=== PATIENT | male | born 1955 | race Caucasian/White ===

== ENCOUNTER 2019-08-02 17:14 | Inpatient (IN) ==
[2019-08-02] MEDS ORDERED: RAPID SEQUENCE INDUCTION BAG ONE ×2 (17:20→17:39)
[2019-08-02] MEDS ORDERED: PROPOFOL IV EMULSION 10 MG/ML 100 ML VIAL IV ONE (17:40)
[2019-08-02] MEDS ORDERED: AMIODARONE 150MG / 100ML D5W IV ONE (17:44)
[2019-08-02] MEDS ORDERED: SODIUM CHLORIDE 0.9% 1000ML 1,000 ML IV SCH (18:00)
[2019-08-02] MEDS ORDERED: NiCARDipine HCL INJ 2.5 MG/ML 10 ML AMP ONE (18:09)
[2019-08-02] MEDS ORDERED: fentaNYL citrate 100 MCG/2 ML VIAL ONE (18:09)
[2019-08-02] MEDS ORDERED: HEPARIN (PORCINE) 1000 UNIT/ML 10 ML (CATH LAB USE ONLY) ONE (18:09)
[2019-08-02] MEDS ORDERED: MIDAZOLAM HCL 1 MG/ML 2ML VIAL ONE (18:10)
[2019-08-02] MEDS ORDERED: AMIODARONE / D5W 360 MG/200 ML BAG IV SCH ×2 (18:15)
[2019-08-02 18:18] LABS: Basophils # (auto) 0.04 K/uL (0-0.2); Basophils % (auto) 0.3 %; Eosinophils # (auto) 0.04 K/uL (0-0.5); Eosinophils % (auto) 0.3 %; Hemoglobin 16.3 g/dL (14.0-18.0); Immature Granulocytes # (auto) 0.05 K/uL (0.00-0.02); Immature Granulocytes % (auto) 0.3 %; Lymphocytes # (auto) 2.45 K/uL (1.2-3.4); Lymphocytes % (auto) 15.6 %; Mean Corpuscular Hemoglobin 29.9 pg (25-34); Mean Corpuscular Hgb Conc 32.6 g/dL (32-36); Mean Corpuscular Volume 91.6 fL (80-100); Monocytes # (auto) 1.54 K/uL (0.11-0.59); Monocytes % (auto) 9.8 %; Neutrophils # (auto) 11.55 K/uL (1.4-6.5); Neutrophils % (auto) 73.7 %; Platelet Count 211 K/uL (130-400); RDW Coefficient of Variation 15.2 % (11.5-14.5); RDW Standard Deviation 50.6 fL (36.4-46.3); Red Blood Count 5.46 M/uL (4.7-6.1); White Blood Count 15.67 K/uL (4.8-10.8)
[2019-08-02 18:23] LABS: iSTAT Creatinine 1.2 mg/dl (0.6-1.3); iSTAT Ionized Calcium 1.02 mmol/l (1.12-1.32); iSTAT Potassium 5.1 mmol/L (3.3-5.0)
--- NOTE | 2019-08-02 18:24 | XRay Report ---
XR chest 1V portable CLINICAL HISTORY: Chest pain COMPARISON STUDY: No previous studies for comparison. FINDINGS: The tip of the endotracheal tube is 5.3 cm above the noemi. A left subclavian biventricula r pacer is in place. Moderate to marked enlargement of the cardiac silhouette is noted. There is no p neumothorax. There are suspected trace bilateral pleural effusions. Interstitial thickening favors pu lmonary edema. IMPRESSION: 1. Satisfactory positioning of the endotracheal tube. 2. No pneumothorax. Suspected trace bilateral pleural effusions. 3. Moderate to marked enlargement of the cardiac silhouette. 4. Interstitial thickening which favors pulmonary edema. An infectious process could appear similar a lthough is considered less likely. ACT 112: Negative or not required by law. Electronically signed by: Michael Nye M.D. 08/02/2019 6:22 PM
[2019-08-02 18:33] LABS: INR 1.3 (0.9-1.1); Partial Thromboplastin Ratio 1.1; Partial Thromboplastin Time 29.9 Seconds (21.0-31.0); Prothrombin Time 13.4 Seconds (9.0-12.0)
--- NOTE | 2019-08-02 18:56 | CT Scan Report ---
CT OF THE HEAD WITHOUT CONTRAST CLINICAL HISTORY: found down COMPARISON STUDY: No previous studies for comparison. TECHNIQUE: Helical axial images of the head were obtained without IV contrast. Automated exposure con trol was utilized for the study. A dose lowering technique was utilized adhering to the principles o f ALARA. FINDINGS: No acute intracranial hemorrhage, midline shift or mass effect is present. Ventricular syst em is normal. Basilar cisterns are patent. There are no extra axial collections. There is an old infa rct within the anterior medial left frontal lobe. Hypodensity within the left occipital lobe is noted . This favors a subacute to chronic infarct. There is loss of gonzalez-white differentiation within the r ight insular cortex. There is hypodensity within a significant portion of the right MCA distribution. This favors an acute infarct. There is no mass effect. No calvarial fracture is present. Air-fluid l evel with secretions within the left maxillary sinus is noted. Secretions within nasopharynx are like ly related to intubation. IMPRESSION: 1. No acute intracranial hemorrhage or mass effect. 2. Probable acute right MCA distribution infarct, at least moderate in size. Findings discussed with Dr. Carranza at time of dictation. 3. Old left frontal lobe infarct. Hypodensity within the left occipital lobe which favors a subacute to chronic infarct. ACT 112: Negative or not required by law. Electronically signed by: Michael Nye M.D. 08/02/2019 6:55 PM
--- NOTE | 2019-08-02 18:59 | CT Scan Report ---
CT OF THE CERVICAL SPINE WITHOUT CONTRAST CLINICAL HISTORY: found down COMPARISON STUDY: No previous studies for comparison. TECHNIQUE: Helical axial images of the cervical spine were obtained without IV contrast. Sagittal a nd coronal reconstructions were viewed. Automated exposure control was utilized for the study. A do se lowering technique was utilized adhering to the principles of ALARA. FINDINGS: Alignment of the cervical spine is anatomic. Vertebral body heights are maintained. No acut e cervical spine fracture or subluxation is present. There is no prevertebral edema. Facet joints are intact. Endotracheal tube is partially imaged. Moderate multilevel degenerative disc disease and fa cet arthrosis is noted. Please note that the chest will be reported separately. IMPRESSION: No acute cervical spine fracture or subluxation. ACT 112: Negative or not required by law. Electronically signed by: Michael Nye M.D. 08/02/2019 6:57 PM
[2019-08-02] MEDS ORDERED: EPINEPHrine INJ 1 MG/ML AMP ONE (19:00)
--- NOTE | 2019-08-02 19:04 | Emergency Department Note ---
History of Present Illness General Chief complaint: Fall Stated complaint: FALL, CONFUSION Time Seen by Provider: 08/02/19 17:15 History of Present Illness Provider complaint: Found down Onset (ago): unknown 64-year-old male presents emergency department via EMS. Per EMS, the patient was found down in his mobile trailer home. They state they approximate that he was down for approximately 6 hours. EMS reports that the patient is being extremely combative, hypoxic at 87% on room air, they have been unable to secure an IV line or get accurate blood pressure readings. EMS reports that the patient has been in a wide-complex tachycardia in route also. Patient was recently at [facility] and has discharge paperwork with him regarding diabetes. Allergies Allergy/AdvReac Type Severity Reaction Status Date / Time No Known Allergies Allergy Unverified 08/02/19 19:33 Past Med/Surg History Medical History (Updated 08/03/19 @ 01:16 by Cristóbal Carranza) Acute DVT (deep venous thrombosis) Acute hypoxemic respiratory failure (Acute) Acute kidney injury Cerebral infarction involving middle cerebral artery (Acute) Diabetes Hyperglycemia due to type 2 diabetes mellitus Multifocal pneumonia S/P admission to ICU (intensive care unit) Splenic infarct Ventricular tachycardia (Acute) Social History Current Living Situation: Family Smoking Status: Unknown if ever smoked Review of Systems Unobtainable due to cognitive status Physical Exam Vital Signs Vital Signs - 24 hr 08/02/19 17:05 08/02/19 17:40 08/02/19 17:45 Temperature Temperature Source Pulse Rate 150 H 125 H Pulse Rate [Right Finger] 150 H Respiratory Rate 20 16 Respiratory Effort / Characteristics Blood Pressure [Left Arm] 80/40 L Blood Pressure Mean [Left Arm] 53 Blood Pressure Position [Left Arm] Lying Pulse Oximetry 92 88 L 98 Oxygen Delivery Method Mechanical Vent Mechanical Vent Mechanical Vent Oxygen Flow Rate 15 Fraction of Inspired Oxygen 100 SaO2/FiO2 Ratio Sepsis New/Unexplained Change in Mental Status Yes Sepsis Action Taken by Nursing No Action Required End-Tidal CO2 33 Pulse Oximetry Post Tiitration 98 08/02/19 17:50 08/02/19 18:39 08/02/19 19:50 Temperature 37.5 C Temperature Source Rectal Pulse Rate Pulse Rate [Right Finger] 121 H 114 H Respiratory Rate 18 22 Respiratory Effort / Characteristics Mechanically Ventilated Mechanically Ventilated Blood Pressure [Left Arm] 80/60 L 145/111 H Blood Pressure Mean [Left Arm] 66 122 Blood Pressure Position [Left Arm] Lying Pulse Oximetry 98 100 Oxygen Delivery Method Mechanical Vent Mechanical Vent Mechanical Vent Oxygen Flow Rate Fraction of Inspired Oxygen 100 SaO2/FiO2 Ratio 100 Sepsis New/Unexplained Change in Mental Status Sepsis Action Taken by Nursing End-Tidal CO2 Pulse Oximetry Post Tiitration Physical Exam GENERAL: Patient appears severely distressed. Agonal breathing tachypneic. Appears mildly mildly cyanotic. Patient appears dirty. EYES:Pupils are equal, round, and reactive to light. CV: Tachycardic rate, irregular rhythm, normal heart sounds and intact distal pulses. PULM/CHEST: Rhonchi bilaterally. Respiratory distress. Tachypneic. Agonal breathing. - Chest Wall: Patient appears to have a suspected defibrillator or pacemaker in his left upper chest. ABD: The abdomen is soft. Obese. There is diffuse ecchymosis of the anterior abdominal wall which looks like it could have been due to Lovenox shots. NEURO: GCS eye subscore is 1. GCS verbal subscore is 2. GCS motor subscore is 4. Procedures FAST Exam FAST Exam 1: Fluid in Morison's pouch: No Fluid in Splenorenal Junction: No Fluid around bladder, Transverse view: No Fluid around bladder, Sagittal view: No Fluid in Pericardial Sac: No Study normal for this patient: Yes Additional Comments: Zaman exam performed. No AAA. Good lung sliding bilaterally, no pneumothorax bilaterally. Intubation Time out performed: Yes sedative: Etomidate paralytic: Rocuronium Mg Given: 100 Laryngoscope: other (Dover scope) ET Tube Size: 7.5 ET Tube Uncuffed: Yes Tube Secured Location: lips Tube Placement Confirmation: visualized tube passing through cords, equal breath sounds bilaterally, no breath sounds over epigastrium and confirmation by capnometry Patient Tolerated Procedure: well Intubation Complications: none IO Right Tibia: IO Instrument Used to Penetrate the Cortex: battery powered IO drill Patient Tolerated Procedure: well Complications: none (Good marrow and blood return. Line was able to be easily flushed.) Left Tibia: IO Instrument Used to Penetrate the Cortex: battery powered IO drill Patient Tolerated Procedure: well Complications: none (Good marrow and blood return. Line was able to be easily flushed.) Course Course 1700: The patient was evaluated in room C10. A complete history and physical exam was performed. Patient was immediately moved to the resuscitation bay Administered Medications Discontinued Medications Amiodarone HCl/Dextrose (Nexterone / D5w) Confirm Administered Dose 150 mg IV .STK-MED ONE Stop: 08/02/19 17:45 Last Admin: 08/02/19 19:09 Dose: 150 mg Documented by: [id number] Cosigned by: [id number] Epinephrine HCl (Epinephrine) Confirm Administered Dose 4 mg .ROUTE .STK-MED ONE Stop: 08/02/19 19:01 Last Admin: 08/02/19 21:33 Dose: Not Given Documented by: [id number] Fentanyl Citrate (Fentanyl Citrate) Confirm Administered Dose 100 mcg .ROUTE .STK-MED ONE Stop: 08/02/19 18:10 Last Admin: 08/02/19 21:33 Dose: Not Given Documented by: [id number] Furosemide (Lasix) Confirm Administered Dose 40 mg IV .STK-MED ONE Stop: 08/02/19 19:15 Last Admin: 08/02/19 21:33 Dose: Not Given Documented by: [id number] Heparin Sodium (Porcine) (Heparin Iv Bolus (Feeder Associate Use Only)) Confirm Administered Dose 10,000 units .ROUTE .STK-MED ONE Stop: 08/02/19 18:10 Last Admin: 08/02/19 21:34 Dose: Not Given Documented by: [id number] Heparin Sodium/Sodium Chloride (Heparin/Nss 1000 Unit/500ml Flush Bag) Confirm Administered Dose 3,000 units IV .STK-MED ONE Stop: 08/02/19 18:11 Last Admin: 08/02/19 21:34 Dose: Not Given Documented by: [id number] Sodium Chloride (Nss 1000ml) 1,000 mls @ 999 mls/hr IV .Q1H1M JUAN ALBERTO Stop: 08/02/19 19:00 Last Infusion: 08/02/19 19:01 Dose: 999 mls/hr Documented by: [id number] Admin: 08/02/19 18:00 Dose: 999 mls/hr Documented by: [id number] Amiodarone HCl/Dextrose (Nexterone / D5w) 360 mg in 200 mls @ 33.3 mls/hr IV .Q6H1M JUAN ALBERTO Stop: 08/03/19 00:15 Last Admin: 08/02/19 21:33 Dose: Not Given Documented by: [id number] Levetiracetam 1,000 mg/ Sodium (Chloride) 110 mls @ 440 mls/hr IV NOW STA Stop: 08/02/19 20:50 Last Infusion: 08/02/19 21:57 Dose: 0 mls/hr Documented by: [id number] Admin: 08/02/19 21:32 Dose: 440 mls/hr Documented by: [id number] Vancomycin HCl 2,250 mg/ (Sodium Chloride) 545 mls @ 200 mls/hr IV NOW ONE Stop: 08/02/19 23:22 Last Admin: 08/02/19 21:32 Dose: 200 mls/hr Documented by: [id number] Cefepime HCl 2,000 mg/ Syringe 20 mls @ 5.5 mls/min IV NOW STA; Protocol Stop: 08/02/19 20:42 Last Admin: 08/02/19 21:32 Dose: 5.5 mls/min Documented by: [id number] Insulin Human Regular 250 (units/ Sodium Chloride) 250 mls @ 4.1 mls/hr IV .Q24H JUAN ALBERTO; Protocol Stop: 09/01/19 20:44 Last Admin: 08/02/19 21:46 Dose: 4.1 units/hr, 4.1 mls/hr Documented by: [id number] Cosigned by: [id number] Insulin Aspart (Novolog Flexpen) 0 units SC ACHS JUAN ALBERTO Stop: 09/01/19 20:59 Last Admin: 08/02/19 21:48 Dose: Not Given Documented by: [id number] Cosigned by: [id number] Insulin Human Regular (Novolin R Bolus From Bag) 4 units IV ONE ONE Stop: 08/02/19 21:16 Last Admin: 08/02/19 21:47 Dose: 4 units Documented by: [id number] Cosigned by: [id number] Midazolam HCl (Versed) Confirm Administered Dose 2 mg .ROUTE .STK-MED ONE Stop: 08/02/19 18:11 Last Admin: 08/02/19 21:34 Dose: Not Given Documented by: [id number] Miscellaneous () Confirm Administered Dose 1 ea .ROUTE .STK-MED ONE Stop: 08/02/19 17:21 Last Admin: 08/02/19 18:29 Dose: Not Given Documented by: [id number] Miscellaneous () Confirm Administered Dose 1 ea .ROUTE .STK-MED ONE Stop: 08/02/19 17:40 Last Admin: 08/02/19 18:29 Dose: 1 ea Documented by: [id number] Miscellaneous (Insulin Protocol Goal Range) 1 ea N/A ONE ONE Stop: 08/02/19 20:45 Last Admin: 08/02/19 21:47 Dose: 1 ea Documented by: [id number] Nicardipine HCl (Cardene) Confirm Administered Dose 25 mg .ROUTE .STK-MED ONE Stop: 08/02/19 18:10 Last Admin: 08/02/19 21:33 Dose: Not Given Documented by: [id number] Propofol (Diprivan) Confirm Administered Dose 1,000 mg IV .STK-MED ONE Stop: 08/02/19 17:41 Last Admin: 08/02/19 19:08 Dose: 1,000 mg Documented by: [id number] Cosigned by: [id number] Critical Care Time Critical Care Time: Yes Total Critical Care Time: 105 105 Medical Decision Making Laboratory Data Result diagrams: 08/02/19 18:09 08/02/19 18:09 Lab Results 08/02/19 08/02/19 08/02/19 Range/Units 17:22 18:09 18:09 WBC 15.67 H (4.8-10.8) K/uL RBC 5.46 (4.7-6.1) M/uL Hgb 16.3 (14.0-18.0) g/dL POC Hgb (14.0-18.0) g/dl Hct 50.0 (42-52) % POC Hct (42-52) % MCV 91.6 (80-100) fL MCH 29.9 (25-34) pg MCHC 32.6 (32-36) g/dL RDW Std Deviation 50.6 H (36.4-46.3) fL RDW Coeff of Penny 15.2 H (11.5-14.5) % Plt Count 211 (130-400) K/uL MPV 13.0 H (7.4-10.4) fL Immature Gran % (Auto) 0.3 % Neut % (Auto) 73.7 % Lymph % (Auto) 15.6 % [place] % (Auto) 9.8 % Eos % (Auto) 0.3 % Baso % (Auto) 0.3 % Immature Gran # (Auto) 0.05 H (0.00-0.02) K/uL Neut # (Auto) 11.55 H (1.4-6.5) K/uL Lymph # (Auto) 2.45 (1.2-3.4) K/uL [place] # (Auto) 1.54 H (0.11-0.59) K/uL Eos # (Auto) 0.04 (0-0.5) K/uL Baso # (Auto) 0.04 (0-0.2) K/uL PT 13.4 H (9.0-12.0) Seconds INR 1.3 H (0.9-1.1) APTT 29.9 (21.0-31.0) Seconds PTT Ratio 1.1 POC pH (7.35-7.45) POC pCO2 (35-46) mmHg POC pO2 (80-95) mmHg POC HCO3 (19-24) james/L POC Base Excess (-9-1.8) james/L POC ABG O2 Sat (90-95) % POC Sodium (135-144) mmol/L Sodium (136-145) mmol/L POC Potassium (3.3-5.0) mmol/L Potassium (3.5-5.1) mmol/L POC Chloride (101-112) mmol/L Chloride (98-107) mmol/L Carbon Dioxide (21-32) mmol/L POC Total CO2 (24-31) mmol/L Anion Gap (3-11) POC Anion Gap (16-25) mmol/L POC BUN (7-18) mg/dl BUN (7-18) mg/dl Creatinine (0.6-1.4) mg/dl POC Creatinine (0.6-1.3) mg/dl Est Cr Clr Drug Dosing ml/min Est GFR ( Amer) Est GFR (Non-Af Amer) BUN/Creatinine Ratio (10-20) Glucose (70-99) mg/dl POC Glucose 275 H (70-99) mg/dl POC Glucose (other) (70-99) mg/dl Calcium (8.5-10.1) mg/dl POC Ioniz Calcium Katie (1.12-1.32) mmol/l Magnesium (1.8-2.4) mg/dl Total Bilirubin (0.2-1) mg/dl AST (15-37) U/L ALT (12-78) U/L Alkaline Phosphatase (45-117) U/L Total Creatine Kinase (39-308) U/L CK-MB (CK-2) (0.5-3.6) ng/ml CK/CKMB % Calc (0-3.0) Troponin I (0-0.045) ng/ml NT-Pro-B Natriuret Pep (0-900) pg/ml Total Protein (6.4-8.2) gm/dl Albumin (3.4-5.0) gm/dl Globulin (2.5-4.0) gm/dl Albumin/Globulin Ratio (0.9-2) Lipase (73-393) U/L Beta-Hydroxybutyric Acd (0.2-2.81) mg/dl TSH (0.300-4.500) uIu/ml Specimen Hemolysis 08/02/19 08/02/19 08/02/19 Range/Units 18:09 18:11 19:10 WBC (4.8-10.8) K/uL RBC (4.7-6.1) M/uL Hgb (14.0-18.0) g/dL POC Hgb 18.0 18.0 (14.0-18.0) g/dl Hct (42-52) % POC Hct 53 H 53 H (42-52) % MCV (80-100) fL MCH (25-34) pg MCHC (32-36) g/dL RDW Std Deviation (36.4-46.3) fL RDW Coeff of Penny (11.5-14.5) % Plt Count (130-400) K/uL MPV (7.4-10.4) fL Immature Gran % (Auto) % Neut % (Auto) % Lymph % (Auto) % [place] % (Auto) % Eos % (Auto) % Baso % (Auto) % Immature Gran # (Auto) (0.00-0.02) K/uL Neut # (Auto) (1.4-6.5) K/uL Lymph # (Auto) (1.2-3.4) K/uL Nome # (Auto) (0.11-0.59) K/uL Eos # (Auto) (0-0.5) K/uL Baso # (Auto) (0-0.2) K/uL PT (9.0-12.0) Seconds INR (0.9-1.1) APTT (21.0-31.0) Seconds PTT Ratio POC pH 7.12 L* (7.35-7.45) POC pCO2 70 H (35-46) mmHg POC pO2 52 L (80-95) mmHg POC HCO3 23 (19-24) james/L POC Base Excess -7.0 (-9-1.8) james/L POC ABG O2 Sat 72.0 L (90-95) % POC Sodium 131 L 135 (135-144) mmol/L Sodium 132 L (136-145) mmol/L POC Potassium 5.1 H 4.6 (3.3-5.0) mmol/L Potassium 5.2 H (3.5-5.1) mmol/L POC Chloride 102 (101-112) mmol/L Chloride 103 (98-107) mmol/L Carbon Dioxide 17 L (21-32) mmol/L POC Total CO2 20 L 25 (24-31) mmol/L Anion Gap 13.0 H (3-11) POC Anion Gap 16.0 (16-25) mmol/L POC BUN 30 H (7-18) mg/dl BUN 28 H (7-18) mg/dl Creatinine 1.42 H (0.6-1.4) mg/dl POC Creatinine 1.2 (0.6-1.3) mg/dl Est Cr Clr Drug Dosing 65.1 ml/min Est GFR ( Amer) 59.6 Est GFR (Non-Af Amer) 51.5 BUN/Creatinine Ratio 20.0 (10-20) Glucose 325 H* (70-99) mg/dl POC Glucose (70-99) mg/dl POC Glucose (other) 334 H (70-99) mg/dl Calcium 8.2 L (8.5-10.1) mg/dl POC Ioniz Calcium Katie 1.02 L (1.12-1.32) mmol/l Magnesium 1.7 L (1.8-2.4) mg/dl Total Bilirubin 0.8 (0.2-1) mg/dl AST 31 (15-37) U/L ALT 51 (12-78) U/L Alkaline Phosphatase 95 (45-117) U/L Total Creatine Kinase 199 (39-308) U/L CK-MB (CK-2) 2.8 (0.5-3.6) ng/ml CK/CKMB % Calc 1.4 (0-3.0) Troponin I 0.074 H* (0-0.045) ng/ml NT-Pro-B Natriuret Pep 8124 H (0-900) pg/ml Total Protein 6.7 (6.4-8.2) gm/dl Albumin 2.9 L (3.4-5.0) gm/dl Globulin 3.8 (2.5-4.0) gm/dl Albumin/Globulin Ratio 0.8 L (0.9-2) Lipase 127 (73-393) U/L Beta-Hydroxybutyric Acd (0.2-2.81) mg/dl TSH 4.220 (0.300-4.500) uIu/ml Specimen Hemolysis 08/02/19 Range/Units 19:29 WBC (4.8-10.8) K/uL RBC (4.7-6.1) M/uL Hgb (14.0-18.0) g/dL POC Hgb 17.0 (14.0-18.0) g/dl Hct (42-52) % POC Hct 50 (42-52) % MCV (80-100) fL MCH (25-34) pg MCHC (32-36) g/dL RDW Std Deviation (36.4-46.3) fL RDW Coeff of Penny (11.5-14.5) % Plt Count (130-400) K/uL MPV (7.4-10.4) fL Immature Gran % (Auto) % Neut % (Auto) % Lymph % (Auto) % [place] % (Auto) % Eos % (Auto) % Baso % (Auto) % Immature Gran # (Auto) (0.00-0.02) K/uL Neut # (Auto) (1.4-6.5) K/uL Lymph # (Auto) (1.2-3.4) K/uL [place] # (Auto) (0.11-0.59) K/uL Eos # (Auto) (0-0.5) K/uL Baso # (Auto) (0-0.2) K/uL PT (9.0-12.0) Seconds INR (0.9-1.1) APTT (21.0-31.0) Seconds PTT Ratio POC pH 7.14 L* (7.35-7.45) POC pCO2 65 H (35-46) mmHg POC pO2 57 L (80-95) mmHg POC HCO3 22 (19-24) james/L POC Base Excess -7.0 (-9-1.8) james/L POC ABG O2 Sat 78.0 L (90-95) % POC Sodium 134 L (135-144) mmol/L Sodium (136-145) mmol/L POC Potassium 4.5 (3.3-5.0) mmol/L Potassium (3.5-5.1) mmol/L POC Chloride (101-112) mmol/L Chloride (98-107) mmol/L Carbon Dioxide (21-32) mmol/L POC Total CO2 24 (24-31) mmol/L Anion Gap (3-11) POC Anion Gap (16-25) mmol/L POC BUN (7-18) mg/dl BUN (7-18) mg/dl Creatinine (0.6-1.4) mg/dl POC Creatinine (0.6-1.3) mg/dl Est Cr Clr Drug Dosing ml/min Est GFR ( Amer) Est GFR (Non-Af Amer) BUN/Creatinine Ratio (10-20) Glucose (70-99) mg/dl POC Glucose (70-99) mg/dl POC Glucose (other) (70-99) mg/dl Calcium (8.5-10.1) mg/dl POC Ioniz Calcium Katie (1.12-1.32) mmol/l Magnesium (1.8-2.4) mg/dl Total Bilirubin (0.2-1) mg/dl AST (15-37) U/L ALT (12-78) U/L Alkaline Phosphatase (45-117) U/L Total Creatine Kinase (39-308) U/L CK-MB (CK-2) (0.5-3.6) ng/ml CK/CKMB % Calc (0-3.0) Troponin I (0-0.045) ng/ml NT-Pro-B Natriuret Pep (0-900) pg/ml Total Protein (6.4-8.2) gm/dl Albumin (3.4-5.0) gm/dl Globulin (2.5-4.0) gm/dl Albumin/Globulin Ratio (0.9-2) Lipase (73-393) U/L Beta-Hydroxybutyric Acd (0.2-2.81) mg/dl TSH (0.300-4.500) uIu/ml Specimen Hemolysis Imaging Data My Impression: Chest x-ray shows ET tube in good position. Cardiomegaly. Bilateral patchy infiltrates with cephalization. ECG Data Additional Comments: EKG at 1743: Wide-complex tachycardia insistent with the appearance of ventricular tachycardia. EKG at 1749: Paced rhythm with rate of 120. QRS 134. QTc 520. ST elevation in leads V1, V2, V4, V5 V6. EKG at 1757. Paced rhythm with rate of 131. QRS 162. QTc 475. ST elevation in leads V1, V2, V3, V4 V5 V6. MDM Narrative Patient was immediately seen in room C10. Patient appeared to be in acute distress was immediately moved to resuscitation bay. In the resuscitation bay the patient was found to be tachycardic. IO was placed by me in the left lower extremity. The patient had a low GCS and was minimally responsive to noxious stimuli. Decision was made to intubate the patient. Patient was intubated via glide scope, see procedure note. Status post intubation the patient was difficult to bag. The tube was confirmed to be in the right place with glide scope. After this the patient developed a wide-complex tachycardia and was f ound to be hypotensive, he did have a pulse. Patient then was subsequently cardioverted at 100 J. Repeat EKG showed a possible ST elevation in leads V1 and V2. Heart alert was called. ICU attending was paged. Amiodarone bolus and drip were ordered for the patient. Patient became hypotensive again while the amiodarone was running and it was difficult to find a pulse on the patient. Bedside ultrasound performed by me did show that the patient had cardiac motion. A epinephrine drip was created by placing 1 mg of epinephrine from the code cart into 1 L normal saline bag and then was ran wide open on the patient. A second IO line was placed by me in the right lower extremity. Calcium chloride 1 g was given for possible hyperkalemia through this line. Bedside ZAMAN exam was negative. No free fluid in the abdomen. No AAA. No pneumothorax. Blood pressure began stabilizing on the epinephrine drip. Dr. Knox interventional cardiology and Dr. White ICU came to the bedside. The decision was made to take the patient a CAT scan as patient was found down and was thought the patient could have is possible brain bleed. The plan was that if the patient need to be transferred for an acute bleed or any acute injury, the patient would be transferred and if not the patient be taken to the cardiac [facility]. I went with the patient to the CT scanner. CT of the head viewed by me showed no large intracranial hemorrhage or no cervical spine fracture. Therefore the patient was taken from the CAT scan to the cardiac [facility]. After the patient went to the cardiac [facility], I received a call from radiology which stated the patient could have a acute MCA ischemic stroke. Patient is not a candidate for TPA it is unclear when the patient fell or when his symptoms began as he was found on the floor. Dr. Knox in the [facility] team were made aware of this as well as the admitting team [facility] doctor Velarde. [employer] Dr. Nj was also made aware of these findings. It was not thought that the patient was stable for transfer given his hypotension, wide- complex tachycardia, and need to be on epinephrine drip. Therefore no consultation with a tertiary care stroke center was done emergency department at this time as it was thought that would be best to stabilize the patient hemodynamically in the ICU before transfer. Impression & Plan Acute hypoxemic respiratory failure, Ventricular tachycardia, Cerebral infarction involving middle cerebral artery Discharge Plan Visit Data *Final* Discharge Date/Time: 08/02/19 18:39 Chief Complaint: Fall Stated Complaint: FALL, CONFUSION ED Provider: Cristóbal Carranza Discharge Problem: Acute hypoxemic respiratory failure, Ventricular tachycardia, Cerebral infarction involving middle cerebral artery Patient Disposition: Admitted As Inpatient Discharge Instructions Interventions: ED Discharge Assessment Last Done: 08/02/19 18:39
--- NOTE | 2019-08-02 19:07 | CT Scan Report ---
CT OF THE CHEST WITHOUT IV CONTRAST CLINICAL HISTORY: found down COMPARISON STUDY: Chest radiograph performed earlier today. TECHNIQUE: Axial images of the chest were obtained without IV contrast. Images were reviewed in the axial, sagittal, and coronal planes. IV contrast was not administered for this examination. Automat ed exposure control was utilized for the study. A dose lowering technique was utilized adhering to t he principles of ALARA. FINDINGS: A left subclavian biventricular pacer is in place. Moderate cardiomegaly is noted. There i s no pericardial effusion. There are multiple enlarged mediastinal lymph nodes. Index right paratrach eal lymph node on image 101 of 281 measures 1.7 cm in short axis diameter. There is no pneumothorax. There are small bilateral pleural effusions. Severe upper lobe predominant emphysema is noted. The kj ngs are suboptimally assessed given respiratory motion. There is interlobular septal thickening withi n the lungs. In addition, extensive bilateral airspace opacities are noted, greater within the left l mone. There is no cavitation. No acute rib or thoracic spine fracture is noted. Old right-sided rib fr actures present. Endotracheal tube is appropriately positioned. CT of the abdomen and pelvis will be reported separately. A suspected large splenic infarct is noted. IMPRESSION: 1. Moderate cardiomegaly with interstitial pulmonary edema. Small bilateral pleural effusions. 2. Extensive bilateral airspace opacities which could reflect pneumonia, sequela of aspiration or pul monary alveolar edema. 3. Enlarged mediastinal lymph nodes which are indeterminate. A follow-up chest CT in 3 months could b e obtained. 4. Suspected large splenic infarct better depicted on the CT of the abdomen and pelvis. Please see th at report for further description. 5. Severe emphysema. ACT 112: Negative or not required by law. Electronically signed by: Michael Nye M.D. 08/02/2019 7:05 PM
[2019-08-02] MEDS ORDERED: FUROSEMIDE 40 MG/4 ML VIAL IV ONE (19:14)
--- NOTE | 2019-08-02 19:17 | CT Scan Report ---
CT OF THE ABDOMEN AND PELVIS WITHOUT CONTRAST CLINICAL HISTORY: found down COMPARISON STUDY: No previous studies for comparison. TECHNIQUE: Axial images of the abdomen and pelvis were obtained without IV contrast. Images were revi ewed in the axial, sagittal, and coronal planes. Automated exposure control was utilized for the dy. A dose lowering technique was utilized adhering to the principles of ALARA. FINDINGS: Please note that the chest CT will be reported separately. Small bilateral pleural effusion s with associated airspace opacities are better depicted on that exam. Although suboptimally assessed on this unenhanced exam, a 8.9 x 5.9 cm well-demarcated hypodensity within the mid to upper aspect o f the spleen favors an infarct. There is adjacent infiltration. Water attenuation lesions within the bilateral kidneys are suboptimally assessed on this unenhanced exam but favor cysts. No pneumatosis, free air or portal venous gas is present. Unenhanced images of the liver, adrenal glands and pancreas are normal. There is no biliary or pancreatic ductal dilatation. There is trace pericholecystic flui d. The gallbladder is not distended. Trace fluid within the pelvis is noted. There is no evidence for a bowel obstruction. The appendix is normal. No lymphadenopathy is present. A James balloon is prese nt within the bladder. No acute lumbar spine or pelvic fracture is identified. IMPRESSION: 1. 8.9 x 5.9 cm well demarcated hypodensity within the superior aspect of the spleen which favors an infarct. 2. No bowel obstruction. 3. Mild pericholecystic infiltration/fluid. No gallbladder distention. No convincing evidence for acu te cholecystitis. ACT 112: Negative or not required by law. Electronically signed by: Michael Nye M.D. 08/02/2019 7:16 PM
[2019-08-02 19:23] LABS: iSTAT Arterial Blood Gas HCO3 23 meg/L (19-24); iSTAT Arterial Blood Gas pCO2 70 mmHg (35-46); iSTAT Arterial Blood Gas pH 7.12 (7.35-7.45); iSTAT Arterial Blood Gas pO2 52 mmHg (80-95); iSTAT Carbon Dioxide 25 mmol/L (24-31); iSTAT Hematocrit 53 % (42-52); iSTAT Potassium 4.6 mmol/L (3.3-5.0); iSTAT Sodium 135 mmol/L (135-144)
[2019-08-02 19:42] LABS: iSTAT Arterial Blood Gas HCO3 22 meg/L (19-24); iSTAT Arterial Blood Gas pCO2 65 mmHg (35-46); iSTAT Arterial Blood Gas pH 7.14 (7.35-7.45); iSTAT Arterial Blood Gas pO2 57 mmHg (80-95); iSTAT Carbon Dioxide 24 mmol/L (24-31); iSTAT Hematocrit 50 % (42-52); iSTAT Potassium 4.5 mmol/L (3.3-5.0); iSTAT Sodium 134 mmol/L (135-144)
[2019-08-02] MEDS ORDERED: ICU PROTOCOL FOR HYPERGLYCEMIA PRN (19:55)
--- NOTE | 2019-08-02 19:55 | Cardiac Catheterization ---
[facility] Data: [place] Cardiac Status Clinical evaluation leading to the procedure CAD Presenation: Unstable angina (Suspected ACS) Heart Failure: NYHA Class: CCS IV Cardiogenic Shock within 24 Hours: No Cardiac Arrest within 24 Hours: Yes Imaging Studies Past 6 Months: No Stress Studies Past 6 Months: No Diagnostic Physicians Name: Brandyn Knox MD Closure Device Recommendations: Medical Therapy and/or Counseling Intraprocedure Events Significant Disection: No Perforation: No Cardiac Cath Procedure Full Procedure Date August 02, 2019 Pre-Procedure Diagnosis Pre-Procedure Diagnosis: Acute Coronary Syndrome (Possible ACS) and Cardiothoracic Symptom (Ventricular tachycardia) AUC Score AUC Score: 7 Post-Procedure Diagnosis Post-Procedure Diagnosis: Moderate CAD and Elevated Intracardiac Pressures Procedure(s) Performed Procedure(s) Performed: Coronary Angiography, Left Heart Cath, Ultrasound Guided Vascular Access and Procedure (LT CVC placement) Ciso Brandyn Knox MD Calibrator Barometers(s) Alpesh Estimated Blood Loss Estimated Blood Loss: 10 Medication(s) Medication(s): Epinephrine and Lidocaine 1% Medication(s): Lasix x1 Summary of Findings Indication: Patient found down, unresponsive. Presenting rhythm in emergency department ventricular tachycardia. ECG post cardioversion without dynamic ST changes. Access: 6 Fr slender right radial artery Catheters: [place], JL4 Findings: LM -medium caliber vessel, luminal irregularities LAD -medium caliber vessel, 40% ostial stenosis, patent proximal LAD stent with minimal in-stent restenosis distal vessel extends around apex with CHACORTA III flow. Bifurcating first diagonal with 50% ostial stenosis. Circumflex -medium caliber codominant vessel, proximal/mid segment luminal irregularities RCA -medium caliber vessel, codominant, 50% mid segment stenosis, CHACORTA-3 flow in PDA LVEDP -29 -Difficulty oxygenating patient during procedure given IV Lasix 40 mg x 1 Maintained on epinephrine 0.1 Triple-lumen CVC placed to left CFV under ultrasound guidance. Ultrasound of right common femoral vein notable for acute appearing mobile thrombus. Arterial Closure: TR band Summary: 1. Moderate nonobstructive coronary artery disease -Patent proximal LAD stent with mild in-stent restenosis. 40 to 50% ostial stenosis of bifurcating first diagonal 50% mid RCA stenosis 2. Elevated intracardiac filling pressure Recommendations: No evidence of obstructive coronary disease to explain initial presentation and ventricular tachycardia. Continued hemodynamic support, amiodarone, diuresis in ICU per critical care Hemodynamics Rest Ao:: 158/82/102 Final Ao: 139/86/140 LV: 137/29 Recommendations Recommendations: Medical Therapy and/or Counseling Specimens Specimens: None Radiation Exposure (mGy) 1150 Contrast (mls) 60 Fluids (cc crystalloids) Fluids (cc crystalloids): 400 Drains Drains: None Anesthesia Moderate Procedural Complication(s) None I attest to the content of the Intraoperative Record and any orders documented therein. Any exceptions are noted below. [facility] Procedure Codes Cardiac Catheterization Procedure 1: Cardiovascular Cath Procedures: 12493 Coronaries and LHC (+/-LV) Therapeutic Services & Ancillary Proc Procedure 1: Cardiovascular Tx and Anc Procedures: 95452 Insertion Central Venous Catheter Procedure 2: Cardiovascular Tx and Anc Procedures: 77418 Ultrasonic Guidance Vascular Access PG Care Time/CCT Total # of Minutes Spent Total Time Spent with Patient: Total time spent is greater than 50% in coordination of care (as documented) at patient's floor/unit and/or counseling patient:
[2019-08-02 20:25] LABS: Albumin Globulin Ratio 0.8 (0.9-2); Albumin Level 2.9 gm/dl (3.4-5.0); Bilirubin,Total 0.8 mg/dl (0.2-1); Calcium 8.2 mg/dl (8.5-10.1); Creatine Kinase MB 2.8 ng/ml (0.5-3.6); Creatinine Clr Calc Pharmacy 65.1 ml/min; Est GFR (African American) 59.6; Est GFR (Non-African American) 51.5; Globulin 3.8 gm/dl (2.5-4.0); Magnesium 1.7 mg/dl (1.8-2.4); Potassium 5.2 mmol/L (3.5-5.1); Thyroid Stimulating Hormone 4.22 uIu/ml (0.300-4.500); Total Protein 6.7 gm/dl (6.4-8.2); Troponin I 0.074 ng/ml (0-0.045)
[2019-08-02] MEDS ORDERED: levETIRAcetam 1,000 MG in 0.9 % SODIUM CHLORIDE 100 ML IV STA (20:36)
[2019-08-02] MEDS ORDERED: CEFEPIME 2,000 MG in SYRINGE 7.5 ML IV STA (20:39)
[2019-08-02] MEDS ORDERED: VANCOMYCIN HCL 2,250 MG in SODIUM CHLORIDE 0.9% 500 ML IV ONE (20:39)
[2019-08-02] MEDS ORDERED: VANCOMYCIN CONSULT ACTIVE PRN (20:39)
[2019-08-02] MEDS ORDERED: INSULIN PROTOCOL GOAL RANGE ONE (20:44)
[2019-08-02] MEDS ORDERED: INSULIN REGULAR 250 UNITS in SODIUM CHLORIDE 0.9% 247.5 ML IV SCH (20:45)
[2019-08-02] MEDS ORDERED: GLUCOSE 40% GEL 15 GM TUBE PO PRN (21:00)
[2019-08-02] MEDS ORDERED: DEXTROSE 50% 50 ML SYRINGE IV PRN (21:00)
[2019-08-02] MEDS ORDERED: INSULIN ASPART 100 UNITS/ML 3 ML PEN SC SCH (21:00)
[2019-08-02] MEDS ORDERED: GLUCAGON FOR INJ 1 MG VIAL IM PRN (21:00)
[2019-08-02] MEDS ORDERED: CARBOHYDRATES FOR HYPOGLYCEMIA PO PRN (21:00)
[2019-08-02] MEDS ORDERED: GLUCOSE 10 TABS/TUBE PO PRN (21:00)
--- NOTE | 2019-08-02 21:07 | Critical Care Consultation ---
Date of Consultation August 02, 2019 Assessment & Plan (1) S/P admission to ICU (intensive care unit): 64-year-old male with past medical history of coronary artery disease, diabetes mellitus type 2 [place] and was found to have an acute right MCA infarct, splenic infarct, diffuse coronary artery disease, ventricular tachycardia, multifocal pneumonia and acute hypoxemic respiratory failure requiring mechanical ventilation Neurologic: Analgesics and sedation: Avoid sedation. PRN fentanyl if needed. He does have evidence of an acute stroke. Will obtain a CTA of his head and neck. Will contact [facility] for possible mechanical thrombectomy given findings of the noncontrast CT head. Elevate the head of the bed above 30 degrees. Pain controlled to avoid increased intracranial pressure. Allow for permissive hypertension. We will only treat hypertension if systolic blood pressure greater than 220 or diastolic blood pressure greater than 120. He is at risk for right middle cerebral artery malignant syndrome. I have loaded him with Keppra 1000 mg. Consult neurology. Delirium precautions Pulmonary: Patient is currently intubated requiring high amounts of PEEP and FiO2. We are treating multifocal pneumonia. Evaluating for COVID-19. Obtain sputum culture. We will continue lung protective ventilation strategy. Patient has respiratory acidosis. We will increase his respiratory rate to 25. Decrease tidal volumes of 450 to allow for lung protective ventilation strategy. Head of the bed elevated to 30 degrees if intubated Cardiovascular: Permissive hypertension as above for the first 24 to 48 hours.. Intervene if systolic blood pressure greater than 220 or diastolic blood pressure greater than 120. Gastrointestinal: N.p.o. for now. Stress ulcer prophylaxis: Protonix. Renal: Possible MIGUEL. We will continue to follow urine output. UA pending. Infectious disease: Urinalysis, blood cultures, sputum cultures, procalcitonin and lactate pending. MRSA screen pending as well. We will empirically start vancomycin and cefepime. Over 19 pending. Hematologic: No significant coagulopathy. Platelets normal. He does have evidence of a clot in his right femoral vein per cardiology. He also has splenic infarcts. He may be hypercoagulable. Hypercoagulable work-up will be deferred once he is out of an acute phase of illness. We will check a fibrinogen level. Endocrine: Patient very hyperglycemic. We will start him on insulin drip. Check TSH. F/E/N: Hold IV fluids for now. Hold nutrition. Lines and tubes: Left femoral vein catheter in place. Left radial art line in place. Peripheral IV is being attempted. He has [address] in both shins. VTE prophylaxis: We will hold for now given the right MCA infarct. CODE STATUS: Full code. Family at bedside: None available at bedside. Disposition: Remain in the ICU for now. Will contact [facility] for possible transfer to neuro ICU. Discussed with patient's bedside RN, respiratory therapist, conditioning coach, ER physician and hospitalist. I have personally spent 62 minutes of critical care time in the direct management of this patient. This is a life/limb threatening event. This includes time spent evaluating patient, direct bedside care, chart review, placing orders, interpretation of diagnostic studies, discussion with consultants, patient, and family members, as well as other required patient management activ ities. This time is exclusive of all separately billable procedures, and teaching time and separate from and in addition to any other critical care service time. Thank you for allowing us to participate in the care of this patient. (2) Cerebral infarction involving middle cerebral artery: (3) Ventricular tachycardia: (4) Acute hypoxemic respiratory failure: (5) Multifocal pneumonia: (6) Hyperglycemia due to type 2 diabetes mellitus: (7) Acute kidney injury: (8) Acute DVT (deep venous thrombosis): (9) Splenic infarct: History of Present Illness Reason for Consultation: Shock and acute stroke Requesting Physician: Emergency department physician Attending Physician: Hospitalist History of Present Illness History unobtainable from the patient as he is intubated and encephalopathic. I was able to obtain some history from the ER physician and bedside nurses. This is a 64-year-old male with an unknown past medical history who was found down in his mobile [place] home. He was found down since perhaps 9 or 10 AM. EMS reported that he was very combative and hypoxic to 87% on room air. They were unable to secure any lines for IV medications. He was apparently recently at [facility] and we are awaiting the paperwork regarding that discharge. He did undergo 2 shocks in the emergency department for ventricular tachycardia. I was present in the emergency department with Dr. Brandyn Knox who agreed to take the patient for heart cath evaluation. Prior to that the patient underwent a CT of his head, chest, abdomen, pelvis. CT C-spine was also obtained. No acute cervical spine fracture noted. An 8.9 x 5.9 well-demarcated hypodensity within the superior aspect of the spleen favoring an infarct was seen. CT chest demonstrated moderate cardiomegaly with interstitial pulmonary edema and small bilateral effusions. Extensive bilateral airspace opacities were also seen likely sequelae of aspiration or pulmonary edema. Severe emphysema seen as well. CT head indicated probable acute right MCA distribution infarct at least moderate in size. Old left frontal infarct was also seen. ABG demonstrated severe acidosis with a pH of 7.14/65/57. Cardiac cath demonstrated moderate nonobstructive coronary artery disease. Patent proximal LAD stent with mild in-stent restenosis. Elevated intracardiac filling pressures. LVEDP was 29 mmHg. A triple-lumen central venous line was placed in the femoral vein on the left. Ultrasound of the right femoral vein noted possible acute appearing mobile thrombus. Allergies Allergy/AdvReac Type Severity Reaction Status Date / Time No Known Allergies Allergy Unverified 08/02/19 19:33 Patient History Medical History Diabetes Social History Current Living Situation: Family Smoking Status: Unknown if ever smoked Review of Systems Review of Systems: Unobtainable due to cognitive status and Unobtainable due to endotracheal tube Physical Exam Constitutional: Patient is currently intubated and sedated. He appears mildly tachypneic. He is moving his right extremity at times and shaking. Eyes: Pupils are pinpoint but reactive to light. ENMT: external ear and nose normal, oropharynx normal Neck: normal visual inspection Respiratory: Bilateral rhonchi and crackles noted. Cardiovascular: RRR, no murmur, no edema Gastrointestinal (Abdomen): normal bowel sounds, soft, nontender, no hepatosplenomegaly Musculoskeletal: no cyanosis or clubbing, extremities motor strength 5/5 Skin: Numerous wounds and scratch chavez on his abdomen. Neurologic: He appears to spontaneously move his right upper extremity and right leg. His left upper extremity and left leg are flaccid. Psychiatric: Unable to assess given the patient's underlying medical condition. Genitourinary: James catheter in place Results & Data Results & Data ([facility]) Vital Signs (Past 12 Hours) Vital Signs Pulse Pulse Resp BP Pulse Ox 08/02/19 17:50 121 H 18 80/60 L 98 08/02/19 17:45 150 H 18 80/40 L 98 08/02/19 17:40 88 L 08/02/19 17:05 150 H 20 92 I personally reviewed the patient's labs, imaging and recent notes. Coding Level of Care Code Critical Care 1st 30-74 mins Diagnoses S/P admission to ICU (intensive care unit) Cerebral infarction involving middle cerebral artery I63.519 Ventricular tachycardia I47.2 Acute hypoxemic respiratory failure J96.01 Multifocal pneumonia J18.9 Hyperglycemia due to type 2 diabetes mellitus E11.65 Acute kidney injury N17.9 Acute DVT (deep venous thrombosis) I82.409 Splenic infarct D73.5 Time Spent (min) 62
--- NOTE | 2019-08-02 21:08 | Procedure Note ---
Procedure Note Date of Service August 02, 2019 Note ARTERIAL LINE PROCEDURE NOTE: Procedure: Arterial Line Placement Indication: Monitoring on Pressors Anesthesia: None Procedure was done emergently as patient is critically ill A time-out was completed verifying correct patient, procedure, site, positioning, and implant(s) or special equipment if applicable. Patients left wrist was prepped and draped in the usual sterile fashion. Ultrasound guidance was used to aid needle placement. A 20g Arrow arterial line was introduced into the left artery. Catheter was threaded, and the needle was removed with appropriate blood return. Good waveform was observed. The patient tolerated the procedure well. Blood Loss: Minimal Complications: None Coding CPT Codes Tubes, Drains, and Vasc Access - Tubes, Drains, and Vasc Access: [id number] Ultrasound Guidance For Vascular ([id number]) Tubes, Drains, and Vasc Access - Tubes, Drains, and Vasc Access: [id number] Place Catheter In Artery ([id number]) [facility] Procedure Codes (Charges) Tubes, Drains, and Vasc Access Procedure 1: Tubes, Drains, and Vasc Access: [id number] Ultrasound Guidance For Vascular Procedure 2: Tubes, Drains, and Vasc Access: [id number] Place Catheter In Artery
[2019-08-02] MEDS ORDERED: NovoLIN-R BOLUS FROM BAG IV ONE (21:15)
[2019-08-02] MEDS ORDERED: CALCIUM CHLORIDE 10% 10 ML SYR IV ONE (23:08)
[2019-08-02] MEDS ORDERED: ROCURONIUM BROMIDE 10 MG/ML 5 ML VIAL IV ONE (23:08)
[2019-08-02] MEDS ORDERED: ETOMIDATE 2 MG/ML 20 ML VIAL IV ONE (23:08)
[2019-08-03] MEDS ORDERED: AMIODARONE 450 MG in D5W 250ML IN *POLYOLEFIN BAG* 241 ML IV SCH (00:15)
[2019-08-03] MEDS ORDERED: 0.2 MICRON FILTER SET 1 EA IV ONE (00:15)
--- NOTE | 2019-08-03 01:14 | History and Physical Report ---
DATE OF ADMISSION: 08/02/2019 CHIEF COMPLAINT: Unresponsiveness. HISTORY OF PRESENT ILLNESS: This is a 64-year-old male who as per the records is with a past medical history significant for diabetes, CAD, hypertension, who was found down in his mobile trailer home. There is a question of 6-7 hours down, last well known was about 9:00 to 10:00 a.m. in the morning and he was brought to the ER, where he initially was extremely combative, hypoxic at 87% on room air. The patient was in [facility] and discharged lab work showed diabetes. He was also found to be tachycardic and initially IO was placed in the left lower extremity. The patient then was with very low GCS, then decision was made to intubate. After the intubation, the patient developed wide complex tachycardia and was found to be hypotensive. At that time, he had a pulse. The patient is status post cardioversion with 100 joules and repeat EKG showed possible ST elevation in leads V1 and V2. Heart alert was called. Amiodarone bolus and drip was started. Then patient became again hypotensive and it was difficult to find a pulse at that time. Bedside ultrasound performed by the ER physician showed the patient had cardiac motion. Epinephrine drip was started wide open on the patient. A second IO line was placed in the right lower extremity. Calcium chloride 1 gram was given for possible hyperkalemia through this line. After blood pressure was stabilized on the epinephrine drip, decision was made to take the patient to CAT scan and if there is any bleeding, plan to transfer to tertiary care, but CAT scan was negative for bleed, so he was sent to the cardiac catheterization. After the patient was sent to cardiac cath, the ER physician received a call from radiology that the patient had a right-sided acute MCA ischemic stroke. At this time, the patient is not a candidate for TPA and the patient is status post cardiac catheterization and his proximal LAD stent was patent with minimal in-stent restenosis. Has a 50% ostial stenosis, 50% right mid RCA stenosis. He was also found to have obstructive coronary artery disease and the patient was transferred to the ICU. At that time, during the cardiac catheterization, they tried to put a triple lumen in the right femoral line and found to have a deep venous thrombosis. Because of the right MCA stroke and has multiple things going on, it was thought prudent to transfer him to tertiary center .Currently taken for CTA of the head and neck, which results are still pending. His chest x-ray was also showing multifocal pneumonia, possible aspiration. He was started on IV antibiotics. Called [facility] and they accepted him in transfer. COVID test also is ordered and came back negative ALLERGIES: No known drug allergies. PAST MEDICAL HISTORY: As per above, do not know full history. PAST SURGICAL HISTORY: Unknown at this time. MEDICATIONS: Currently in the chart. FAMILY HISTORY: Unknown. SOCIAL HISTORY: Unknown. REVIEW OF SYSTEMS: Could not obtain, PHYSICAL EXAMINATION: GENERAL: The patient is status post intubated and sedated. HEENT: Atraumatic. No pallor, no icterus. NECK: No JVD seen. No neck masses seen. CARDIOVASCULAR: S1, S2 heard, regular rate and rhythm, no murmur. RESPIRATORY SYSTEM: Normal AP diameter. No wheezing. Mild bibasilar crackles. ABDOMEN: Soft, bowel sounds sluggish. No distention. CENTRAL NERVOUS SYSTEM: Currently status post intubation and sedated. EXTREMITIES: No edema, no erythema seen. LABORATORY DATA: WBC 15.6, hemoglobin 16.3, hematocrit 50, platelets 211. PT 13.4, INR 1.3, APTT 29.9. Point of care ABGs, point of care pH 7.1, pCO2 of 65, pO2 of 57, bicarbonate 22. Sodium 132, potassium 5.2, chloride 103, bicarbonate 17, BUN 28, creatinine 1.42, serum glucose 325. Lactate pending. Calcium 8.2, magnesium 1.7, total bilirubin 0.8, AST 31, ALT 51, alkaline phosphatase 95, total creatinine kinase 199, CK-MB 2.8. Troponin 1 of 0.07, BNP 8124, TSH 4.2. COVID-19 PCR pending. IMAGING DATA: Chest x-ray, satisfactory position of the endotracheal tube, no pneumothorax. Suspected trace bilateral pleural effusions, moderate to marked enlargement of the cardiac silhouette, interstitial thickening which favors pulmonary edema. Infectious process could appear similar, although it is considered less likely. CT of the abdomen and pelvis, 8.9 to 5.9 cm well-demarcated hypodensity within the superior aspect of the spleen, which favors infarct. No bowel obstruction. Mild pericholecystic infiltration. No gallbladder distention, no evidence for acute cholecystitis. Cervical spine CT, no acute cervical spine fracture or subluxation. Chest CT, moderate cardiomegaly with interstitial pulmonary edema, small bilateral pleural effusions, extensive bilateral airspace opacities which could reflect pneumonia, sequelae, aspiration or pulmonary alveolar edema. Enlarged mediastinal lymph nodes which are indeterminate. Emphysema.Ct abd/pelvis: 8.9 x 5.9cm well demarcated hypodensity, large splenic infarct,. CT of the head, no acute intracranial hemorrhage or mass effect, probable acute right MCA distribution infarct at least moderate in size. Old left frontal lobe infarct. Hypodensity in the left occipital lobe, which favors a subacute to chronic infarct. EKG: Ventricular paced rhythm at rate of 131. ASSESSMENT AND PLAN: This is a 64-year-old male with history of diabetes, coronary artery disease, hypertension, who was found unresponsive in his trailer at home and when he was brought, he was combative and hypoxic. He was status post intubation and found to have multifocal pneumonia. Then he developed wide complex tachycardia which was treated with cardioversion and amiodarone drip. Then again he became hypotensive with loss of pulse. Bedside echo showed heart was functioning and he was placed on IV epinephrine drip which improved the blood pressure, then he was taken to CAT scan and cardiac catheterization. CAT scan initially there was no bleed, but later was notified that he has a right MCA stroke. Cardiac catheterization was done and it showed nonobstructive disease and patent proximal LAD stent. Because of the right MCA stroke, it was decided to transfer him into [place] for further plan of care. The patient's sugars were also running high, was started on insulin drip. Received IV vancomycin and IV cefepime and IV amiodarone drip. COVID-19 PCR is negative. Awaiting transfer to [place]. Family was notified by the nursing staff. [facility]
--- NOTE | 2019-08-03 08:08 | Discharge Summary ---
Date of Service August 03, 2019 Admission HPI Per Admitting Provider This is a 64-year-old male who as per the records is with a past medical history significant for diabetes, CAD, hypertension, who was found down in his mobile trailer home. There is a question of 6-7 hours down, last well known was about 9:00 to 10:00 a.m. in the morning and he was brought to the ER, where he initially was extremely combative, hypoxic at 87% on room air. The patient was in [facility] and discharged lab work showed diabetes. He was also found to be tachycardic and initially IO was placed in the left lower extremity. The patient then was with very low GCS, then decision was made to intubate. After the intubation, the patient developed wide complex tachycardia and was found to be hypotensive. At that time, he had a pulse. The patient is status post cardioversion with 100 joules and repeat EKG showed possible ST elevation in leads V1 and V2. Heart alert was called. Amiodarone bolus and drip was started. Then patient became again hypotensive and it was difficult to find a pulse at that time. Bedside ultrasound performed by the ER physician showed the patient had cardiac motion. Epinephrine drip was started wide open on the patient. A second IO line was placed in the right lower extremity. Calcium chloride 1 gram was given for possible hyperkalemia through this line. After blood pressure was stabilized on the epinephrine drip, decision was made to take the patient to CAT scan and if there is any bleeding, plan to transfer to tertiary care, but CAT scan was negative for bleed, so he was sent to the cardiac catheterization. After the patient was sent to cardiac cath, the ER physician received a call from radiology that the patient had a right-sided acute MCA ischemic stroke. At this time, the patient is not a candidate for TPA and the patient is status post cardiac catheterization and his proximal LAD stent was patent with minimal in-stent restenosis. Has a 50% ostial stenosis, 50% right mid RCA stenosis. He was also found to have obstructive coronary artery disease and the patient was transferred to the ICU. At that time, during the cardiac catheterization, they tried to put a triple lumen in the right femoral line and found to have a deep venous thrombosis. Because of the right MCA stroke and has multiple things going on, it was thought prudent to transfer him to tertiary center .Currently taken for CTA of the head and neck, which results are still pending. His chest x-ray was also showing multifocal pneumonia, possible aspiration. He was started on IV antibiotics. Called [facility] and they accepted him in transfer. COVID test also is ordered and came back negative Admission Exam Per Admitting Provider GENERAL: The patient is status post intubated and sedated. HEENT: Atraumatic. No pallor, no icterus. NECK: No JVD seen. No neck masses seen. CARDIOVASCULAR: S1, S2 heard, regular rate and rhythm, no murmur. RESPIRATORY SYSTEM: Normal AP diameter. No wheezing. Mild bibasilar crackles. ABDOMEN: Soft, bowel sounds sluggish. No distention. CENTRAL NERVOUS SYSTEM: Currently status post intubation and sedated. EXTREMITIES: No edema, no erythema seen. Principal Diagnosis Acute cva Discharge Data Allergies Allergy/AdvReac Type Severity Reaction Status Date / Time No Known Allergies Allergy Unverified 08/02/19 19:33 Consultations 08/02/19 19:55 Consult Case Management - Discharge Planning Routine Consult Computational Biologist Routine 08/02/19 20:58 Consult Neurology Stat Procedures Performed Operation Date: 08/02/19 18:05 Actual Procedures p Cath, Left with Cors and Vent - Mitch Knox MD s Cineradiography w/Routine Exam - Mitch Knox MD s Central Venous Cath Placement - Mitch Knox MD s Ultrasound Vascular Access - Mitch Knox MD Ordered Studies 08/02/19 18:08 CL Cath Imgs for PACS use only Stat 08/02/19 18:16 CT abd pelvis wo con Stat CT cervical spine wo con Stat CT chest wo con Stat CT head/brain wo con Stat 08/02/19 20:41 CT angio head wo/w Urgent CT angio neck with con Urgent Hospital Course (1) S/P admission to ICU (intensive care unit): This is a 64-year-old male with history of diabetes, coronary artery disease, hypertension, who was found unresponsive in his trailer at home and when he was brought, he was combative and hypoxic. He was status post intubation and found to have multifocal pneumonia. Then he developed wide complex tachycardia which was treated with cardioversion and amiodarone drip. Then again he became hypotensive with loss of pulse. Bedside echo showed heart was functioning and he was placed on IV epinephrine drip which improved the blood pressure, then he was taken to CAT scan and cardiac catheterization. CAT scan initially there was no bleed, but later was notified that he has a right MCA stroke. Also found to have splenic infarct and right femoral dvt. Cardiac catheterization was done and it showed nonobstructive disease and patent proximal LAD stent. Because of the right MCA stroke, it was decided to transfer him into [facility] for further plan of care. The patient's sugars were also running high, was started on insulin drip. Received IV vancomycin and IV cefepime and IV amiodarone drip. COVID-19 PCR is negative. Awaiting transfer to [facility]. Family was notified by the nursing staff. (2) Splenic infarct: (3) Acute DVT (deep venous thrombosis): (4) Acute kidney injury: (5) Hyperglycemia due to type 2 diabetes mellitus: (6) Multifocal pneumonia: (7) Acute hypoxemic respiratory failure: (8) Ventricular tachycardia: (9) Cerebral infarction involving middle cerebral artery: Total Time Total Time Spent Total Time Spent (In Minutes): 45 minutes Discharge Plan Discharge Items Patient Disposition: Transfer Acute [facility] Reason For Visit: CVA Discharge Diagnosis: acute right MCA stroke Activity: As commented below Activity Comment: s/p intubated Non-emergency contact: Primary Care Provider Call non-emergency contact if: you have any medication questions Follow-up/Referrals: PCP,NO [Primary Care Provider] - Diet: Other - See Diet Comment Diet Comment: milanenrtly s/p intubated Addtl Attending Provider Instructions: followup on cta head and neck Addtl Cd Reactor Operator Head Provider Instructions: iv vanco, iv cefepime for pneumonia amiodarone drip iv insulin drip iv diprovan received iv keppra 100mg Pending Studies at Discharge: Yes Studies:: cta head and neck Stand-Alone Forms: My [facility] Skilled Items Patient informed of condition?: No DNR: No Discharge Level of Care: Other Communicable Disease: No Discharge Prognosis: Other Lines: None and Mid-Line Urinary Catheter: Yes Medications and DC Order Discharge Orders: Discharge Order (Routine); Ordered 08/02/19 Ordered By: Garry Chandra Admission Data Admit Date/Time: 08/02/19 19:55 Attending Provider: Garry Chandrait Provider: Mitch Knox Primary Care Provider: PCP,NO Other Providers: Clint White ; Treasure Jones ; Richy Jones ; Treasure Puga ; Jim Fregoso Other Interventions: Discharge Summary Assessment (RN) Last Done: 08/02/19 23:06 DC Date/Time DO NOT enter until pt leaves facility: 08/02/19 23:09
--- NOTE | 2019-08-03 08:10 | Discharge Summary ---
Date of Service August 03, 2019 Admission HPI Per Admitting Provider This is a 64-year-old male who as per the records is with a past medical history significant for diabetes, CAD, hypertension, who was found down in his mobile trailer home. There is a question of 6-7 hours down, last well known was about 9:00 to 10:00 a.m. in the morning and he was brought to the ER, where he initially was extremely combative, hypoxic at 87% on room air. The patient was in [facility] [address] and discharged lab work showed diabetes. He was also found to be tachycardic and initially IO was placed in the left lower extremity. The patient then was with very low GCS, then decision was made to intubate. After the intubation, the patient developed wide complex tachycardia and was found to be hypotensive. At that time, he had a pulse. The patient is status post cardioversion with 100 joules and repeat EKG showed possible ST elevation in leads V1 and V2. Heart alert was called. Amiodarone bolus and drip was started. Then patient became again hypotensive and it was difficult to find a pulse at that time. Bedside ultrasound performed by the ER physician showed the patient had cardiac motion. Epinephrine drip was started wide open on the patient. A second IO line was placed in the right lower extremity. Calcium chloride 1 gram was given for possible hyperkalemia through this line. After blood pressure was stabilized on the epinephrine drip, decision was made to take the patient to CAT scan and if there is any bleeding, plan to transfer to tertiary care, but CAT scan was negative for bleed, so he was sent to the cardiac catheterization. After the patient was sent to cardiac cath, the ER physician received a call from radiology that the patient had a right-sided acute MCA ischemic stroke. At this time, the patient is not a candidate for TPA and the patient is status post cardiac catheterization and his proximal LAD stent was patent with minimal in-stent restenosis. Has a 50% ostial stenosis, 50% right mid RCA stenosis. He was also found to have obstructive coronary artery disease and the patient was transferred to the ICU. At that time, during the cardiac catheterization, they tried to put a triple lumen in the right femoral line and found to have a deep venous thrombosis. Because of the right MCA stroke and has multiple things going on, it was thought prudent to transfer him to tertiary center .Currently taken for CTA of the head and neck, which results are still pending. His chest x-ray was also showing multifocal pneumonia, possible aspiration. He was started on IV antibiotics. Called [facility] and they accepted him in transfer. COVID test also is ordered and came back negative Principal Diagnosis acute cva Discharge Data Allergies Allergy/AdvReac Type Severity Reaction Status Date / Time No Known Allergies Allergy Unverified 08/02/19 19:33 Consultations 08/02/19 19:55 Consult Case Management - Discharge Planning Routine Consult Booking Prizer Routine 08/02/19 20:58 Consult Neurology Stat Procedures Performed Operation Date: 08/02/19 18:05 Actual Procedures p Cath, Left with Cors and Vent - Mitch Knox MD s Cineradiography w/Routine Exam - Mitch Knox MD s Central Venous Cath Placement - Mitch Knox MD s Ultrasound Vascular Access - Mitch Knox MD Ordered Studies 08/02/19 18:08 CL Cath Imgs for PACS use only Stat 08/02/19 18:16 CT abd pelvis wo con Stat CT cervical spine wo con Stat CT chest wo con Stat CT head/brain wo con Stat 08/02/19 20:41 CT angio head wo/w Urgent CT angio neck with con Urgent Hospital Course (1) S/P admission to ICU (intensive care unit): This is a 64-year-old male with history of diabetes, coronary artery disease, hypertension, who was found unresponsive in his trailer at home and when he was brought, he was combative and hypoxic. He was status post intubation and found to have multifocal pneumonia. Then he developed wide complex tachycardia which was treated with cardioversion and amiodarone drip. Then again he became hypotensive with loss of pulse. Bedside echo showed heart was functioning and he was placed on IV epinephrine drip which improved the blood pressure, then he was taken to CAT scan and cardiac catheterization. CAT scan initially there was no bleed, but later was notified that he has a right MCA stroke. Also found to have splenic infarct and acute right femoral dvt. Cardiac catheterization was done and it showed nonobstructive disease and patent proximal LAD stent. Because of the right MCA stroke, it was decided to transfer him into [facility] for further plan of care. The patient's sugars were also running high, was started on insulin drip. Received IV vancomycin and IV cefepime and IV amiodarone drip. COVID-19 PCR is negative. Awaiting transfer to [facility]. Family was notified by the nursing staff. (2) Splenic infarct: (3) Acute DVT (deep venous thrombosis): (4) Acute kidney injury: (5) Hyperglycemia due to type 2 diabetes mellitus: (6) Multifocal pneumonia: (7) Acute hypoxemic respiratory failure: (8) Cerebral infarction involving middle cerebral artery: Total Time Total Time Spent Total Time Spent (In Minutes): 45 minutes Discharge Plan Discharge Items Patient Disposition: Transfer Acute Care Hospital Reason For Visit: CVA Discharge Diagnosis: acute right MCA stroke Activity: As commented below Activity Comment: s/p intubated Non-emergency contact: Primary Care Provider Call non-emergency contact if: you have any medication questions Follow-up/Referrals: PCP,NO [Primary Care Provider] - Diet: Other - See Diet Comment Diet Comment: currenrtly s/p intubated Addtl Attending Provider Instructions: followup on cta head and neck Addtl Care Connector Provider Instructions: iv vanco, iv cefepime for pneumonia amiodarone drip iv insulin drip iv diprovan received iv keppra 100mg Pending Studies at Discharge: Yes Studies:: cta head and neck Stand-Alone Forms: [employer] [facility] Skilled Items Patient informed of condition?: No DNR: No Discharge Level of Care: Other Communicable Disease: No Discharge Prognosis: Other Lines: None and Mid-Line Urinary Catheter: Yes Medications and DC Order Discharge Orders: Discharge Order (Routine); Ordered 08/02/19 Ordered By: Garry Chandra Admission Data Admit Date/Time: 08/02/19 19:55 Attending Provider: Garry Chandra Admit Provider: Mitch Knox Primary Care Provider: PCP,NO Other Providers: Clint White ; Treasure Jones ; Richy Jones ; Treasure Puga ; Jim Fregoso Other Interventions: Discharge Summary Assessment (RN) Last Done: 08/02/19 23:06 DC Date/Time DO NOT enter until pt leaves facility: 08/02/19 23:09
--- NOTE | 2019-08-03 09:26 | CT Scan Report ---
CT ANGIOGRAPHY OF THE NECK WITH CONTRAST CLINICAL HISTORY: Acute stroke. COMPARISON STUDY: No previous studies for comparison. Technique: CT angiography of the carotid and vertebral arteries was obtained using Dress Code 320 IV and 3D reconstruction on an independent workstation. NASCET criteria was utilized. Automated exposure c ontrol was utilized for the study. A dose lowering technique was utilized adhering to the principles of ALARA. CT DOSE: 1565.48 mGy.cm Findings: Endotracheal tube is partially imaged. Emphysema and extensive bilateral airspace opacities are noted within visualized portions of the upper lungs. Small bilateral pleural effusions are incid entally noted. Enlarged mediastinal lymph nodes are noted, as shown on prior chest CT. Please note th at the CTA of the head will be reported separately. There is no dissection within the major vessels o f the neck. This exam is mildly compromised by motion artifact. There is suspected mild stenosis of t he proximal left internal carotid artery, just distal to the bifurcation. The right carotid bifurcati on is suboptimally assessed due to motion artifact. There is no evidence for severe stenosis. The cristian ateral vertebral arteries are patent. IMPRESSION: 1. Exam mildly compromised by artifact, particularly affecting visualization of the right carotid bif urcation. No evidence for severe stenosis. 2. Mild stenosis of the proximal left internal carotid artery, just distal to the bifurcation. 3. Multiple findings within the upper chest, including emphysema, bilateral airspace opacities, pleur al effusions and mediastinal lymphadenopathy which are better depicted on the chest CT performed janki ier today. ACT 112: Negative or not required by law. Electronically signed by: Michael Nye M.D. 08/03/2019 9:24 AM
--- NOTE | 2019-08-03 09:26 | CT Scan Report ---
CT angio head wo/w HISTORY: 64 years-old Male acute stroke acute strokelike symptoms COMPARISON: Head CT of same day TECHNIQUE: CTA of the head was obtained following the intravenous administration of 115 mL Optiray 32 0 IV contrast. All measurements were obtained according to NASCET criteria. 3-D coronal and sagittal MIPS were obtained from the axial data set and were submitted for review. FINDINGS: Encephalomalacia from remote left anterior cerebral artery infarct. Patchy areas of decreased attenua tion with blurring of the gonzalez-white interface are noted throughout the right MCA territory suggestiv e of acute infarct which appears to be large measuring up to at least 10 cm in AP dimension. Study is mildly motion degraded. No abnormal intracranial enhancement. Cerebral venous sinuses are patent. Ca lcified plaque without high-grade stenosis involves the cavernous and supraclinoid segments. There is approximately 50% luminal narrowing involving the cavernous segment left ICA, image 93 series 5. Mil d multifocal luminal narrowing of the middle cerebral arteries. There is attenuation of the right M2 branches without discrete focal thrombus identified. Anterior cerebral arteries appear patent. Verteb ral arteries appear patent. origin of the right posterior cerebral artery. Posterior cerebral a rteries are patent with mild multifocal luminal narrowing. Endotracheal tube noted. IMPRESSION: 1. Acute large infarct of the right MCA territory. There is attenuation with decreased/absent contras t opacification throughout the right M2 branches. No M1 or internal carotid artery thrombus identifie d. 2. Mild multifocal luminal narrowing with atherosclerotic vascular disease as above. ACT 112: Negative or not required by law. The above report was generated using voice recognition software. It may contain grammatical, syntax o r spelling errors. Electronically signed by: Murphy Sloan M.D. 08/03/2019 9:25 AM
--- NOTE | 2019-08-03 10:16 | Electrocardiogram Report ---
Test Reason : Blood Pressure : / mmHG Vent. Rate : 173 BPM Atrial Rate : 187 BPM P-R Int : 128 ms QRS Dur : 140 ms QT Int : 264 ms P-R-T Axes : 016 232 173 degrees QTc Int : 447 ms Wide complex rhythm Probable Afib with IVCD Anterolateral infarct , age undetermined Abnormal ECG No previous ECGs available Confirmed by Vimal Claire ([id number]) on 08/03/2019 10:15:37 AM Referred By: REFERRED SELF Confirmed By:Vimal Claire
--- NOTE | 2019-08-03 10:18 | Electrocardiogram Report ---
Test Reason : Blood Pressure : / mmHG Vent. Rate : 120 BPM Atrial Rate : 115 BPM P-R Int : 000 ms QRS Dur : 134 ms QT Int : 368 ms P-R-T Axes : 088 267 064 degrees QTc Int : 520 ms Normal sinus rhythm Ventricular-paced rhythm Fusion beats and PVC's ho-chunk beats with IVCD Abnormal ECG When compared with ECG of 02-AUG-2019 17:43, (unconfirmed) Significant changes have occurred Confirmed by Vimal Claire ([id number]) on 08/03/2019 10:17:51 AM Referred By: REFERRED SELF Confirmed By:Vimal Claire
--- NOTE | 2019-08-03 10:20 | Electrocardiogram Report ---
Test Reason : Blood Pressure : / mmHG Vent. Rate : 123 BPM Atrial Rate : 117 BPM P-R Int : 000 ms QRS Dur : 126 ms QT Int : 334 ms P-R-T Axes : 053 267 042 degrees QTc Int : 478 ms Normal sinus rhythm Ventricular-paced rhythm Fusion beats Short burst of afib with [place] IVCD Abnormal ECG When compared with ECG of 02-AUG-2019 17:49, (unconfirmed) Vent. rate has increased BY 3 BPM Confirmed by Vimal Claire ([id number]) on 08/03/2019 10:20:07 AM Referred By: REFERRED SELF Confirmed By:Vimal Claire
--- NOTE | 2019-08-03 10:22 | Electrocardiogram Report ---
Test Reason : Blood Pressure : / mmHG Vent. Rate : 131 BPM Atrial Rate : 131 BPM P-R Int : 000 ms QRS Dur : 162 ms QT Int : 322 ms P-R-T Axes : 000 -66 067 degrees QTc Int : 475 ms Normal sinus rhythm with possible PAT Ventricular-paced rhythm fusion beats Abnormal ECG When compared with ECG of 02-AUG-2019 17:50, (unconfirmed) Vent. rate has increased BY 8 BPM Confirmed by Vimal Claire ([id number]) on 08/03/2019 10:22:03 AM Referred By: REFERRED SELF Confirmed By:Vimal Claire
[2019-08-03] MEDS ORDERED: PANTOprazole 40 MG in SYRINGE 0 ML IV SCH (11:00)
[2019-08-03] MEDS ORDERED: VANCOMYCIN HCL 1,500 MG in SODIUM CHLORIDE 0.9% 500 ML IV SCH (12:00)
[2019-08-04 16:38] LABS: iSTAT Sodium 132 mmol/L (135-144)
[2019-08-04 16:39] LABS: iSTAT Arterial Blood Gas HCO3 22 meg/L (19-24); iSTAT Arterial Blood Gas pCO2 54 mmHg (35-46); iSTAT Arterial Blood Gas pH 7.23 (7.35-7.45); iSTAT Arterial Blood Gas pO2 68 mmHg (80-95); iSTAT Carbon Dioxide 24 mmol/L (24-31); iSTAT Hematocrit 52 % (42-52); iSTAT Hemoglobin 17.7 g/dl (14.0-18.0)
[2019-08-04 16:42] LABS: iSTAT Sample Type Arterial
== END 2019-08-02 23:09 | disposition short-term general hospital (02) | DRG 64 ==
LOC: ED 17:14 → CC 18:39 → 1E 19:55